=== PATIENT | female | born 1980 | race Caucasian/White ===

== ENCOUNTER → 2017-06-09 | Outpatient (CLI) | payer BC ==
[~2017-06-09] MED LIST: LEVSOD150; NITR100CA PO; [UNRECOGNIZED DRUG - OTHER]
== END ==
LOC: LAB 15:41 → LAB SHORT 15:41
DX: Z34.80 Encounter for supervision of other normal pregnancy, unspecified trimester (principal)
CPT/HCPCS: 87081; 87653

== ENCOUNTER 2017-07-06 11:14 | Inpatient (IN) | payer BC ==
[~2017-07-06] VITALS: Ht 167.6 cm; Wt 91.0 kg
[2017-07-06 13:25] LABS: BASOPHILS ABSOLUTE AUTO 0.03 K/mm3 (0.00-0.23); BASOPHILS PERCENT AUTO 0 % (0-2); EOSINOPHILS ABSOLUTE AUTO 0.11 K/mm3 (0.00-0.68); EOSINOPHILS PERCENT AUTO 1 % (0-6); Hematocrit 32.8 % (33.0-51.0); IMMATURE GRAN ABSOLUTE AUTO 0.07 K/mm3 (0.00-0.10); IMMATURE GRAN PERCENT AUTO 1 % (0-1); LYMPHOCYTES ABSOLUTE AUTO 2.18 K/mm3 (0.84-5.20); LYMPHOCYTES PERCENT AUTO 19 % (21-46); MONOCYTES ABSOLUTE AUTO 1.18 K/mm3 (0.16-1.47); MONOCYTES PERCENT AUTO 10 % (4-13); Mean Corpuscular HGB 32.4 pg (26.0-34.0); Mean Corpuscular HGB Conc 33.5 g/dL (31.5-36.5); Mean Corpuscular Volume 97 fL (80-100); Mean Platelet Volume 9.8 fL (9.1-12.4); NEUTROPHILS ABSOLUTE AUTO 8.17 K/mm3 (1.96-9.15); NEUTROPHILS PERCENT AUTO 70 % (41-73); Platelet Count 258 K/mm3 (150-400); RDW Coefficient Variation 12.8 % (11.7-14.2); RDW Standard Deviation 45.4 fL (35.1-46.3); Red Blood Cell Count 3.39 M/mm3 (3.80-5.20); White Blood Cell Count 11.74 K/mm3 (4.00-11.30)
[2017-07-07 05:15] LABS: Hematocrit 32.4 % (33.0-51.0); Hemoglobin 10.7 g/dL (11.5-16.0); Mean Corpuscular HGB 31.8 pg (26.0-34.0); Mean Corpuscular Volume 96 fL (80-100); Mean Platelet Volume 9.9 fL (9.1-12.4); Platelet Count 276 K/mm3 (150-400); RDW Coefficient Variation 12.7 % (11.7-14.2); RDW Standard Deviation 44.4 fL (35.1-46.3); Red Blood Cell Count 3.37 M/mm3 (3.80-5.20); White Blood Cell Count 16.44 K/mm3 (4.00-11.30)
== END 2017-07-08 10:12 | disposition home or self-care (01) | DRG 775 ==
LOC: BC 11:14 → OBS 11:14 → BC 11:58
PROVIDERS: Obstetrics & Gynecology
PROC: 10E0XZZ Delivery of Products of Conception, External Approach (ICD-10-PCS; principal; 2017-07-06)
PROC: 10907ZC Drainage of Amniotic Fluid, Therapeutic from Products of Conception, Via Natural or Artificial Opening (ICD-10-PCS; 2017-07-06)
PROC: 3E0234Z Introduction of Serum, Toxoid and Vaccine into Muscle, Percutaneous Approach (ICD-10-PCS; 2017-07-08)
DX: O80 Encounter for full-term uncomplicated delivery (principal); Z3A.40 40 weeks gestation of pregnancy; Z37.0 Single live birth; Z23 Encounter for immunization
CPT/HCPCS: 36415; 81003; 85025; 85027; 90707; J1885; J2210; J2405; J2590; J3010; J7120

== ENCOUNTER → 2017-08-12 | Outpatient (CLI) | payer BC | LOC: LAB SHORT 18:30 → LAB 18:30 | DX: R07.0 Pain in throat (principal) | CPT/HCPCS: 87070 ==

== ENCOUNTER → 2017-08-19 | Outpatient (CLI) | payer BC ==
[2017-08-19 18:17] LABS: BASOPHILS ABSOLUTE AUTO 0.05 K/mm3 (0.00-0.23); BASOPHILS PERCENT AUTO 1 % (0-2); EOSINOPHILS ABSOLUTE AUTO 0.17 K/mm3 (0.00-0.68); EOSINOPHILS PERCENT AUTO 2 % (0-6); Hematocrit 40.9 % (33.0-51.0); Hemoglobin 13.3 g/dL (11.5-16.0); IMMATURE GRAN ABSOLUTE AUTO 0.01 K/mm3 (0.00-0.10); IMMATURE GRAN PERCENT AUTO 0 % (0-1); LYMPHOCYTES ABSOLUTE AUTO 2.46 K/mm3 (0.84-5.20); LYMPHOCYTES PERCENT AUTO 28 % (21-46); MONOCYTES ABSOLUTE AUTO 0.75 K/mm3 (0.16-1.47); MONOCYTES PERCENT AUTO 9 % (4-13); Mean Corpuscular HGB 30.7 pg (26.0-34.0); Mean Corpuscular HGB Conc 32.5 g/dL (31.5-36.5); Mean Corpuscular Volume 95 fL (80-100); Mean Platelet Volume 10.1 fL (9.1-12.4); NEUTROPHILS ABSOLUTE AUTO 5.29 K/mm3 (1.96-9.15); NEUTROPHILS PERCENT AUTO 61 % (41-73); Platelet Count 257 K/mm3 (150-400); RDW Coefficient Variation 12.1 % (11.7-14.2); RDW Standard Deviation 42.4 fL (35.1-46.3); Red Blood Cell Count 4.33 M/mm3 (3.80-5.20); White Blood Cell Count 8.73 K/mm3 (4.00-11.30)
== END ==
LOC: LAB 16:40 → LAB SHORT 16:40
PROVIDERS: Hospitalist
DX: R13.10 Dysphagia, unspecified (principal)
CPT/HCPCS: 85025

== ENCOUNTER → 2018-03-17 | Outpatient (CLI) | payer BC ==
[2018-03-17 19:05] LABS: Free Thyroxine 1.2 ng/dL (0.70-1.60)
[2018-03-17 19:09] LABS: Thyroid Stimulating Hormone 0.632 uIU/mL (0.360-4.800)
== END | disposition home or self-care (01) ==
LOC: LAB 17:52 → LAB SHORT 17:52
PROVIDERS: Hospitalist
DX: E89.0 Postprocedural hypothyroidism (principal)
CPT/HCPCS: 84439; 84443

== ENCOUNTER → 2018-07-20 | Outpatient (CLI) | payer BC ==
[2018-07-22 15:06] LABS: HPV 16 Negative (Negative); HPV 18 Negative (Negative); HPV OTHER HR TYPES Negative (Negative)
== END | disposition home or self-care (01) ==
LOC: LAB SHORT 16:05 → LAB 16:05
PROVIDERS: Obstetrics & Gynecology
DX: Z01.419 Encounter for gynecological examination (general) (routine) without abnormal findings (principal)
CPT/HCPCS: 87624; G0123

== ENCOUNTER → 2019-12-14 | Outpatient (CLI) | payer BC ==
[2019-12-14 20:30] LABS: Free Thyroxine 1.23 ng/dL (0.70-1.60); Thyroid Stimulating Hormone 0.473 uIU/mL (0.360-4.800)
== END | disposition home or self-care (01) ==
LOC: LAB SHORT 18:02 → LAB 18:02
PROVIDERS: Hospitalist
DX: E03.9 Hypothyroidism, unspecified (principal)
CPT/HCPCS: 84439; 84443

== ENCOUNTER → 2020-10-17 | Outpatient (CLI) | payer BC ==
[2020-10-17 20:07] LABS: Free Thyroxine 1.24 ng/dL (0.70-1.60)
[2020-10-17 20:10] LABS: Thyroid Stimulating Hormone 0.246 uIU/mL (0.360-4.800)
== END | disposition home or self-care (01) ==
LOC: LAB SHORT 16:45 → LAB 16:45
PROVIDERS: Hospitalist
DX: Z12.4 Encounter for screening for malignant neoplasm of cervix (principal); E89.0 Postprocedural hypothyroidism
CPT/HCPCS: 84439; 84443; G0145

== ENCOUNTER → 2021-10-23 | Outpatient (CLI) | payer BC ==
[2021-10-23 20:37] LABS: Free Thyroxine 1.34 ng/dL (0.70-1.60); Thyroid Stimulating Hormone 0.141 uIU/mL (0.360-4.800); Triiodothyronine, Free 2.23 pg/mL (2.18-3.98)
== END | disposition home or self-care (01) ==
LOC: LAB SHORT 16:35
PROVIDERS: Hospitalist
DX: E89.0 Postprocedural hypothyroidism (principal)
CPT/HCPCS: 84439; 84443; 84481

== ENCOUNTER → 2023-02-19 | Outpatient (CLI) | payer BC | LOC: LAB SHORT 14:02 → LAB 14:02 | DX: N30.00 Acute cystitis without hematuria (principal) | CPT/HCPCS: 87077; 87086; 87186 ==

== ENCOUNTER → 2023-06-10 | Outpatient (CLI) | payer OTHER ==
[2023-06-10 14:50] LABS: Bacterial Vaginosis PCR Negative (NEGATIVE); Candida Group, PCR NOT DETECTED (NOT DETECT)
[2023-06-10 14:54] LABS: Candida glabrata-krusei, PCR DETECTED (NOT DETECT)
== END ==
LOC: LAB 10:01 → LAB SHORT 10:01
PROVIDERS: Advanced Practice Midwife
DX: N76.0 Acute vaginitis (principal)
CPT/HCPCS: 87481; 87661; 87801

== ENCOUNTER → 2023-09-16 | Outpatient (CLI) | payer OTHER ==
[2023-09-16 16:01] LABS: Bacterial Vaginosis PCR Negative (NEGATIVE); Candida Group, PCR NOT DETECTED (NOT DETECT); Candida glabrata-krusei, PCR NOT DETECTED (NOT DETECT)
[2023-09-18 21:08] LABS: APTIMA MEDIA TYPE Unisex Swab; C. TRACHOMATIS BY TMA Negative (Negative); N. GONORRHOEAE BY TMA Negative (Negative); SPECIMEN SOURCE Vaginal; T. VAGINALIS BY TMA Negative (Negative)
== END ==
LOC: LAB SHORT 09:50 → LAB 09:50
PROVIDERS: Family Medicine
DX: Z11.3 Encounter for screening for infections with a predominantly sexual mode of transmission (principal)
CPT/HCPCS: 87481; 87491; 87591; 87661; 87801

== ENCOUNTER → 2023-09-28 | Outpatient (CLI) | payer OTHER ==
[2023-09-28 16:06] LABS: Bacterial Vaginosis PCR Negative (NEGATIVE); Candida Group, PCR NOT DETECTED (NOT DETECT)
[2023-09-28 16:23] LABS: Candida glabrata-krusei, PCR DETECTED (NOT DETECT)
== END ==
LOC: LAB 11:46 → LAB SHORT 11:46
PROVIDERS: Family Medicine
DX: N76.0 Acute vaginitis (principal)
CPT/HCPCS: 87481; 87661; 87801

== ENCOUNTER → 2024-01-26 | Outpatient (CLI) | payer OTHER ==
[2024-01-26 15:51] LABS: Appearance, Urine Clear (Clear); Bilirubin, Urine Neg (Neg); Blood, Urine Neg (Neg); Color, Urine Yellow (P-Yellow); Glucose Qualitative, Urine Neg (Neg); Ketones, Urine Neg (Neg); Nitrite, Urine Pos (Neg); Protein, Urine Neg (Neg); Source, Urine Clean Catch; Urobilinogen, Urine NORM (Normal)
[2024-01-26 16:11] LABS: Leukocyte Esterase, Urine 2+ (Neg)
[2024-01-26 16:12] LABS: Bacteria Mod /hpf; Red Blood Cells, Urine 0-2 /hpf (0-2); Squamous Epithelial Cells Few /hpf (Few)
== END ==
LOC: LAB 13:45 → LAB SHORT 13:45
PROVIDERS: Obstetrics & Gynecology
DX: R30.0 Dysuria (principal)
CPT/HCPCS: 81001; 87086